=== PATIENT | female | born 1975 | race American Indian/Alaskan Native ===

== ENCOUNTER 2016-12-01 22:30 | Emergency (ER) | payer OTHER ==
[2016-12-01 22:43] VITALS: BP 126/74
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
[2016-12-01] MEDS ORDERED: MOTRIN PO ONE (23:27)
--- NOTE | 2016-12-02 00:40 | Cat Scan Report ---
FINAL REPORT EXAM: CT HEAD/BRAIN WO CON HISTORY: HEAD INJURY TECHNIQUE: Noncontrast serial axial images from skull base to vertex PRIORS: None. FINDINGS: There is no mass effect or midline shift. There are no abnormal intra or extra-axial fluid collections. Cortical sulci and lateral ventricles are within normal limits for size and configuration. Basilar cisterns are patent. No acute intracranial hemorrhage is identified. Visualized paranasal sinuses and mastoid air cells are well aerated. No acute osseous abnormality is identified. IMPRESSION: 1. No acute intracranial hemorrhage is identified.
--- NOTE | 2016-12-02 01:32 | XRay Report ---
FINAL REPORT PROCEDURE: XR SPINE CERVICAL 2-3V TECHNIQUE: Cervical spine radiographs, AP, lateral, and open-mouth odontoid views. CPT 24839 HISTORY: NECK COMPARISON: No prior studies are available for comparison. FINDINGS: Prevertebral soft tissues: Normal . Alignment: There is some reversal of normal cervical lordosis. Vertebral body heights/Disk spaces: There is loss of disc space height at the C5-6 and C6-7 levels. Moderate spur formation off the vertebral bodies at the C 5 through the C7 vertebral levels is noted.. Fracture(s): None . Facets: Normal . Bone mineralization: Normal . IMPRESSION: There is no evidence of an acute fracture or dislocation. Mild cervical spondylosis and degenerative disc changes at the C5-6 and C6-7 levels.
== END 2016-12-02 01:57 | disposition home or self-care (01) ==
LOC: ED 22:30
DX: S13.4XXA Sprain of ligaments of cervical spine, initial encounter (principal); S39.012A Strain of muscle, fascia and tendon of lower back, initial encounter; R51 Headache; F17.200 Nicotine dependence, unspecified, uncomplicated; V43.52XA Car driver injured in collision with other type car in traffic accident, initial encounter; Y92.415 Exit ramp or entrance ramp of street or highway as the place of occurrence of the external cause; Y93.89 Activity, other specified; Y99.8 Other external cause status
CPT/HCPCS: 70450; 72040